=== PATIENT | female | born 1990 | race Caucasian/White ===

== ENCOUNTER 2024-10-09 05:51 | Inpatient (IN) | payer OTHER ==
[~2024-10-09] VITALS: Ht 160 cm; Wt 3.2 kg
[2024-10-09 04:20] VITALS: BP 101/67
[2024-10-09] MEDS ORDERED: CEFAZOLIN SODIUM 1,000 MG VIAL IV SCH (06:00)
[2024-10-09] MEDS ORDERED: RINGERS SOLUTION,LACTATED 1,000 ML IV SCH (06:00)
[2024-10-09] MEDS ORDERED: CITRIC ACID/SODIUM CITRATE 30 ML BLIST.PACK PO SCH (06:00)
[2024-10-09] MEDS ORDERED: PRENATAL TABLE1 EAC1 (06:15)
[2024-10-09] MEDS ORDERED: IRON 100 PLUS1 EACH (06:16)
[2024-10-09 06:46] LABS: HEMOGLOBIN 10.8 g/dL (12.0-15.00); MEAN CELL VOLUME 92.8 fL (80.00-100.00); MEAN CORPUSCULAR HEMOGLOBIN 32.3 pg (27.00-32.0); MEAN CORPUSCULAR HGB CONC 34.9 g/dl (32.0-36.0); PLATELET COUNT 198 K/uL (150-450); RED BLOOD COUNT 3.34 M/uL (4.00-6.00); RED CELL DISTRIBUTION WIDTH 14.1 % (11.5-14.5)
[2024-10-09 06:53] LABS: PH,URINE 5.5 (5.0-8.0); URINE APPEARANCE Clear; URINE BILIRRUBIN Negative (NEGATIVE); URINE BLOOD Moderate; URINE COLOR Yellow; URINE GLUCOSE Negative (NEGATIVE); URINE KETONE Negative (NEGATIVE); URINE LEUKOCYTE Negative; URINE NITRATE Negative; URINE PROTEIN Negative (NEGATIVE); URINE UROBILINOGEN 0.2 E.U./dl
[2024-10-09 06:54] LABS: URINE BACTERIA 79.5 uL (0.0-1933); URINE EPITHELIAL CELLS 2.6 uL (0.0-38.8); URINE RBC 61.8 uL (0.0-20.8); URINE WBC 4.7 uL (0.0-23.2)
[2024-10-09 07:21] LABS: INR < 0.93; PARTIAL THROMBOPLASTIN TIME 26.6 SECONDS (22.0-34.0); PROTHROMBIN TIME 10.2 SECONDS (9.0-11.5)
[2024-10-09 07:35] VITALS: BP 107/70
[2024-10-09 07:43] LABS: ALBUMIN 2.8 gm/dL (3.4-5.0); BILIRUBIN TOTAL 0.29 mg/dL (0.3-1.2); CALCIUM 9.7 mg/dL (8.5-10.1); CREATININE SERUM 0.68 mg/dL (0.55-1.02); GFR 99.04; POTASSIUM 4.43 mEq/L (3.5-5.1); TOTAL PROTEIN 6.8 gm/dL (6.4-8.2)
[2024-10-09] MEDS ORDERED: ERYTHROMYCIN BASE OPHT 1GM EACH TUBE OP ONE (11:55)
[2024-10-09] MEDS ORDERED: OXYTOCIN 10 UNITS/ML VIAL ONE ×2 (11:55→16:30)
[2024-10-09] MEDS ORDERED: OXYTOCIN 1,000 ML IV SCH (13:30)
[2024-10-09] MEDS ORDERED: MORPHINE SULFATE 4 MG/ML CARTRIDGE IV PRN (13:30)
[2024-10-09] MEDS ORDERED: MORPHINE SULFATE 4 MG/ML VIAL IV ONE ×3 (14:30→17:25)
[2024-10-09 22:00] VITALS: BP 107/67
[2024-10-10] VITALS: BP 99/65
[2024-10-10 08:00] VITALS: BP 91/60
[2024-10-10 08:55] LABS: HEMATOCRIT 26.8 % (36.0-45.00); HEMOGLOBIN 9.4 g/dL (12.0-15.00); MEAN CELL VOLUME 90.4 fL (80.00-100.00); MEAN CORPUSCULAR HEMOGLOBIN 31.9 pg (27.00-32.0); MEAN CORPUSCULAR HGB CONC 35.3 g/dl (32.0-36.0); PLATELET COUNT 174 K/uL (150-450); RED BLOOD COUNT 2.96 M/uL (4.00-6.00); RED CELL DISTRIBUTION WIDTH 14.7 % (11.5-14.5)
[2024-10-10] MEDS ORDERED: IBUprofen 400 MG TABLET PO SCH (09:00)
[2024-10-10 16:00] VITALS: BP 109/68
[2024-10-11 00:19] VITALS: BP 104/60
[2024-10-11] MEDS ORDERED: OxyCODONE HCL 5 MG TABLET (ROXICODONE) PO PRN (06:00)
[2024-10-11 08:00] VITALS: BP 110/71
[2024-10-11] MEDS ORDERED: IBUprofen 400 MG TABLET PO SCH (09:00)
[2024-10-11] MEDS ORDERED: IRON FUM,PS/FOLIC ACID/VITC/B3 1 CAP CAPSULE PO SCH (09:00)
[2024-10-11 14:56] VITALS: BP 106/69
[2024-10-12 00:13] VITALS: BP 96/65
[2024-10-12 08:20] VITALS: BP 96/64
[2024-10-12] MEDS ORDERED: KETO10TA2 PO (10:02)
[2024-10-12] MEDS ORDERED: PERCOCET 5-3251 EACH PO (10:03)
== END 2024-10-12 16:08 | disposition home or self-care (01) | DRG 788 ==
LOC: LDR 05:51 → O/R 05:51 → OB/GYN 15:25
PROVIDERS: Obstetrics & Gynecology; ADMIT Obstetrics & Gynecology; ATTEND Obstetrics & Gynecology
PROC: 4A1HXCZ Monitoring of Products of Conception, Cardiac Rate, External Approach (ICD-10-PCS; 2024-10-09)
PROC: 10D00Z1 Extraction of Products of Conception, Low, Open Approach (ICD-10-PCS; principal; 2024-10-09 12:00)
DX: O82 Encounter for cesarean delivery without indication (principal); Z3A.39 39 weeks gestation of pregnancy; Z37.0 Single live birth; Z20.822 Contact with and (suspected) exposure to COVID-19